=== PATIENT | female | born 1935 | race Caucasian/White ===

== ENCOUNTER → 2016-08-30 | Outpatient (CLI) | payer OTHER, BC | LOC: GIMAGING 15:14 | PROVIDERS: ATTEND Internal Medicine | DX: J40 Bronchitis, not specified as acute or chronic (principal); Z87.01 Personal history of pneumonia (recurrent) | CPT/HCPCS: 71020-PO ==

== ENCOUNTER → 2017-12-01 | Outpatient (CLI) | payer OTHER, BC | LOC: BHFA 13:30 | PROVIDERS: ATTEND Internal Medicine Interventional Cardiology | DX: I50.30 Unspecified diastolic (congestive) heart failure (principal) | CPT/HCPCS: 78452; 93017; A9500; J2785 ==

== ENCOUNTER → 2018-05-28 | Outpatient (CLI) | payer OTHER, BC | LOC: BHFA 14:00 | PROVIDERS: ATTEND Internal Medicine Cardiovascular Disease | DX: R06.02 Shortness of breath (principal); R60.9 Edema, unspecified ==